=== PATIENT | female | born 1960 | race Caucasian/White ===

== ENCOUNTER 2016-10-15 15:00 | Emergency (ER) | payer OTHER ==
[2016-10-15 15:11] VITALS: TEMP 97.9; BMI 19.3
[2016-10-15] MEDS ORDERED: METOCLOPRAMIDE 10 MG/2 ML VIAL IM ONE (17:14)
[2016-10-15] MEDS ORDERED: SUMATRIPTAN SUCCINATE 6 MG/0.5 ML VIAL SQ ONE (17:14)
--- NOTE | 2016-10-15 17:14 | EDPRACDOC ---
- General Information Chief Complaint: Headache Stated Complaint: MIGRAINE Time Seen by Provider: 10/15/16 17:06 Information Source: Patient Home Medications: Home Medications Albuterol Sulfate [Ventolin Hfa] 1 - 2 puff INH Q6H PRN 12/13/14 Amitriptyline HCl [Elavil] 50 mg PO HS 12/13/14 Fluticasone/Salmeterol [Advair 250-50 Diskus] 1 puff INH DAILY 02/06/15 Aclidinium [place] [Tudorza Pressair] 1 inh IH BID 02/10/15 Cetirizine HCl [Zyrtec] 10 mg PO DAILY 02/10/15 Epinephrine [Epipen] 0.3 mg IM . NEEDED PRN 02/10/15 Sertraline HCl [Zoloft] 25 mg PO DAILY 03/04/16 Sumatriptan Succinate [Imitrex] 6 mg SQ .ONCE PRN #1 [email or web address] 10/15/16 Allergies/Adverse Reactions: Allergies Allergy/AdvReac Type Severity Reaction Status Date / Time azithromycin Allergy Hives* Verified 10/15/16 15:11 cephalexin monohydrate Allergy Hives* Verified 10/15/16 15:11 [From Keflex] diphenhydramine HCl Allergy Hives* Verified 10/15/16 15:11 [From Benadryl] erythromycin base Allergy Nausea/Vomi Verified 10/15/16 15:11 ting latex Allergy Unknown Verified 10/15/16 15:11 Penicillins Allergy Hives* Verified 10/15/16 15:11 Sulfa (Sulfonamide Allergy Hives* Verified 10/15/16 15:11 Antibiotics) tetracycline Allergy Nausea/Vomi Verified 10/15/16 15:11 ting - History of Present Illness Onset: LAST NIGHT HPI: PT COMPLAINS OF THROBBING SEVERE HEADACHE, TOP OF HER HEAD, TYPICAL MIGRAINE FOR HER PER HER REPORT. PT DENIES FEVER OR CHILLS, STATES THAT SHE HAS HAD N/V , STATES SENSITIVE TO LIGHT AND SOUND. PT STATES HAS TAKEN MOTRIN FOR HER HEADACHE WITHOUT RELIEF. Location: Reports: Generalized Pain Quality: Reports: Severe, Throbbing, Like Previous Headaches Modifying Factors: improves with: Exposure to light Prior work up: Reports: MRI Relevant History of: Reports: Known Headache disorder Associated Signs and Symptoms: Reports: Chronic Headaches, Nausea/Vomiting. Denies: Vision Changes ED Past Medical History - History Reviewed Yes Nurses notes reviewed and agree except as marked - Patient Medical History Neurological History: Reports: Migraine Respiratory History: Reports: Asthma, COPD, Pneumonia GI/ History: Reports: Kidney Stones, Ulcer Psychological History: Denies: Depression, Anxiety, Bipolar Disorder Systemic History: Reports: Anemia Surgical History: Reports: Tonsillectomy/Adnoidectomy - Family Medical History Reports: Hypertension, Diabetes, Stroke, Cardiac Disorders. Denies: Cancer - Social Medical History Smoking Status: Heavy tobacco smoker (5 or more cigarettes/day or daily pipe/ cigar) ETOH: None Substance Abuse: None EDM Review of Systems - Review of Systems Constitutional: negative: Chills, Fever Eyes: Light Sensitive, Photophobia. negative: Blurred Vision, Double Vision Ears: negative: Drainage Throat: negative: Pain Nose: negative: Congestion, Discharge Respiratory: negative: Cough, Shortness of Breath, Wheezing Cardiovascular: negative: Chest Pain, Palpitations Gastrointestinal: Nausea, Vomiting. negative: Diarrhea, Pain Genitourinary: negative: Dysuria, Frequency Neurological: Headache. negative: Dizziness, Numbness, Speech Difficulty, Weakness, Changes in Orientation Musculoskeletal: No Symptoms Reported Integumentary: No Symptoms Reported - Physical Exam Constitutional: Alert (Awake), No apparent distress Oriented to: Time, Person, Place Last recorded Vital Signs: Last Vital Signs Temp 97.9 F 10/15/16 15:09 Pulse 96 10/15/16 17:08 Resp 18 10/15/16 17:08 BP 130/56 L 10/15/16 17:08 Pulse Ox 97 10/15/16 17:08 Oxygen Pulse Oxygen Saturation 97 O2 Device Room Air Oxygen Flow Rate Fraction of Inspired Oxygen ( FIO2) - HEENT Head: Normal ( normocephalic) Eye Exam: Normal (PERRL, EOMI, Sclera white) Oropharynx: Normal (Pharynx:Moist without exudate,Gums-no swelling) Tympanic Membrane: Normal ENT EAC: Normal TMJ: Normal Nose: No Symptoms Reported (septum midline) Neck: Normal (FROM, trachea at midline) - Respiratory/Cardiovascular Respiratory: Normal - CTA (BBS clear to auscultation without adventitious sounds ) Cardiovascular: Normal (RRR without murmur, gallop or rub) - GI Auscultation: Normal (NABS) Palpation: Normal (Soft,No rebound or guarding, non distended) Tenderness: Non tender [place]'s Sign: Negative - Musculoskeletal Back: Normal (Non-Tender) Extremities: Normal (Normal tone, Pulses 2+ No cyanosis or edema, FROM) - Integumentary Skin: Normal, Warm, Dry Lymphatics: Normal (no adenopathy) - Neurologic Memory Impaired: Normal Motor Function: Normal (Normal tone, Pulses 2+ No cyanosis or edema, FROM) Cranial Nerve: Normal (CN II-X11 intact sensation, strength 5/5) Cerebellar: Normal Mood Description: Normal Perception: Normal - Differential Diagnosis Migraine - Re-evaluation Re-evaluation 1 Re-evaluation Time: 18:12 (HEADACHE IMPROVED, AMBULATED TO BR WITHOUT DIFFICULTY ) - Additional Information OLD RECORDS REVIEWED, RECENT MRI OF BRAIN NORMAL Decision Time to Discharge: 18:13 - Departure Disposition: Home Condition: Stable Final Diagnosis: Acute headache Qualifiers: Headache type: unspecified Intractability: not intractable Qualified Code(s): R51 - Headache Instructions: Acute Headache (ED) Education/Counseling Given To: Patient Education/Counseling Given Regarding: Diagnosis, Treatment, Prognosis, Follow Up Referrals: Belen High NP [Primary Care Provider] - One Week Prescriptions: Sumatriptan Succinate [Imitrex] 6 mg SQ .ONCE PRN #1 [email or web address] PRN Reason: Migraine Headache Additional Instructions: REST, DRINK PLENTY OF FLUIDS, CONTINUE YOUR USUAL MEDICATIONS BEFORE, RETURN TO THE ED FOR ANY WORSENING SYMPTOMS OR CONCERNS.
[2016-10-15 18:25] VITALS: BP 142/75; PULSE 75
== END 2016-10-15 18:25 | disposition home or self-care (01) ==
LOC: ED 15:00 → EDMC 18:25
DX: R51 Headache (principal)
CPT/HCPCS: 96372; 99283; J2765; J3030